=== PATIENT | female | born 1950 | race Caucasian/White ===

== ENCOUNTER 2022-05-22 07:00 | Emergency (ER) | payer MEDICARE, BC ==
[~2022-05-22 07:00] MED LIST: Aspirin 81 MG Tab.Chew PO ONE; Nitroglycerin 0.4 MG Tab.SL SL ONE
[2022-05-22] MEDS ORDERED: Morphine 10 MG/ML SDV IVPUSH ONE (07:28)
[2022-05-22] MEDS ORDERED: Sodium Chloride 0.9% 1,000 ML IV ONE (07:28)
[2022-05-22] MEDS ORDERED: Nitroglycerin 0.4 MG Tab.SL SL ONE (07:35)
[2022-05-22] MEDS ORDERED: Ondansetron 4 MG/2 ML SDV IVPUSH ONE (07:50)
[2022-05-22] MEDS ORDERED: Heparin Sodium 5,000 Units/ML Vial IV ONE (08:20)
[2022-05-22] MEDS ORDERED: Heparin Sodium/0.45% NaCl 500 ML IV ONE (08:20)
[2022-05-22] MEDS ORDERED: Sodium Chloride 0.9% 250 ML IV ONE (08:20)
[2022-05-22] MEDS ORDERED: fentaNYL 100 MCG/2 ML SDV IV ONE ×3 (14:37→18:03)
[2022-05-24 13:45] LABS: ESTIMATED GFR 78 mL/min (>60)
== END 2022-05-22 20:15 ==
LOC: FB.ED 07:00
DX: I24.9 Acute ischemic heart disease, unspecified (principal)
CPT/HCPCS: 36415; 71045; 80053; 81001; 83880; 84484; 85025; 85379; 85610; 85730; 86140; 93005; 93010; 96361; 96365; 96366; 96375; 96376; 99284; 99285-25; A9270-GY; J1644; J2270; J2405; J3010; J7030; J7050; U0002